=== PATIENT | female | born 2000 | race Caucasian/White ===

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

== ENCOUNTER 2021-12-31 15:47 | Outpatient (CLI) | payer OTHER ==
[~2021-12-31 15:47] MED LIST changes: +FEOSOL325 MG PO; +IBUPROFEN600 MG PO; +KEFLEX CAP 500500 MG PO; +LORTAB 5-325 M1 EACH PO; +MIRALAX17 GM PO; +PRENATAL VITAM1 EAC8 PO
[2021-12-31 20:54] LABS: HEMOGLOBIN 10.3 gm/dl (12.3-15.3); RED BLOOD COUNT 3.53 M/UL (4.00-5.10); WHITE BLOOD COUNT 8.2 K/UL (4.5-11.0)
== END 2022-01-01 07:44 | disposition home or self-care (01) ==
LOC: GENOP 15:47 → OB 15:47 → GENOP 20:54 → OB 01-01 07:44 → GENOP 01-01 07:44
PROVIDERS: Obstetrics & Gynecology
DX: O47.1 False labor at or after 37 completed weeks of gestation (principal); Z3A.37 37 weeks gestation of pregnancy; Z20.822 Contact with and (suspected) exposure to COVID-19
CPT/HCPCS: 81001; 85025; G0378; G0463; U0002

== ENCOUNTER 2022-01-03 11:40 | Outpatient (CLI) | payer OTHER | END 2022-01-03 13:18 | disposition home or self-care (01) | LOC: GENOP 11:40 | DX: O47.1 False labor at or after 37 completed weeks of gestation (principal); Z88.1 Allergy status to other antibiotic agents; Z88.8 Allergy status to other drugs, medicaments and biological substances; Z3A.37 37 weeks gestation of pregnancy | CPT/HCPCS: G0463 ==

== ENCOUNTER 2022-01-11 17:09 | Inpatient (IN) | payer OTHER ==
[2022-01-11 18:12] LABS: HEMOGLOBIN 10.5 gm/dl (12.3-15.3); RED BLOOD COUNT 3.7 M/UL (4.00-5.10); WHITE BLOOD COUNT 8.7 K/UL (4.5-11.0)
[2022-01-12] MEDS ORDERED: DOCUSATE SODIU250 MG PO (13:21)
[2022-01-13 04:40] LABS: HEMOGLOBIN 9.3 gm/dl (12.3-15.3)
== END 2022-01-13 18:02 | disposition home or self-care (01) | DRG 807 ==
LOC: GENOP 17:09 → OB 17:30
PROVIDERS: Obstetrics & Gynecology; ADMIT Obstetrics & Gynecology
PROC: 10E0XZZ Delivery of Products of Conception, External Approach (ICD-10-PCS; principal; 2022-01-12)
PROC: 10907ZC Drainage of Amniotic Fluid, Therapeutic from Products of Conception, Via Natural or Artificial Opening (ICD-10-PCS; 2022-01-12)
PROC: 3E033VJ Introduction of Other Hormone into Peripheral Vein, Percutaneous Approach (ICD-10-PCS; 2022-01-12)
PROC: 4A1H7CZ Monitoring of Products of Conception, Cardiac Rate, Via Natural or Artificial Opening (ICD-10-PCS; 2022-01-12)
PROC: 10H073Z Insertion of Monitoring Electrode into Products of Conception, Via Natural or Artificial Opening (ICD-10-PCS; 2022-01-12)
PROC: 10H07YZ Insertion of Other Device into Products of Conception, Via Natural or Artificial Opening (ICD-10-PCS; 2022-01-12)
DX: O99.892 Other specified diseases and conditions complicating childbirth (principal); Z37.0 Single live birth; G43.909 Migraine, unspecified, not intractable, without status migrainosus; Z88.0 Allergy status to penicillin; Z3A.38 38 weeks gestation of pregnancy; Z88.8 Allergy status to other drugs, medicaments and biological substances; Z82.49 Family history of ischemic heart disease and other diseases of the circulatory system; Z80.3 Family history of malignant neoplasm of breast; Z81.8 Family history of other mental and behavioral disorders; Z82.0 Family history of epilepsy and other diseases of the nervous system
CPT/HCPCS: 36415; 85014; 85018; 85025; J2590; J7120